=== PATIENT | male | born 1940 | race Caucasian/White ===

== ENCOUNTER → 2017-02-01 | Outpatient (CLI) | payer BC ==
[2017-02-01 14:15] LABS: ALT/SGPT 39 U/L (12-78); AST/SGOT 28 U/L (15-37); BLOOD UREA NITROGEN 17 mg/dl (7-18); BUN/CREATININE RATIO 12.8 (10-20); CALCIUM 9.5 mg/dl (8.5-10.1); CARBON DIOXIDE 30 mmol/L (21-32); CHLORIDE 101 mmol/L (98-107); CHOLESTEROL 197 mg/dl (0-200); GLUCOSE 120 mg/dl (70-99); POTASSIUM 4.2 mmol/L (3.5-5.1); SODIUM 140 mmol/L (136-145); TRIGLYCERIDES 113 mg/dl (0-150); VERY LOW DENSITY LIPOPROT CALC 23 mg/dl
[2017-02-01 14:25] LABS: CHOLESTEROL/HDL RATIO 1.8; HDL CHOLESTEROL 107 mg/dl; LDL CHOLESTEROL CALCULATED 67 mg/dl
== END | disposition home or self-care (01) ==
LOC: C.LABMFLN 12:09
PROVIDERS: ATTEND Family Medicine
DX: E03.9 Hypothyroidism, unspecified (principal); I25.10 Atherosclerotic heart disease of native coronary artery without angina pectoris; E78.00 Pure hypercholesterolemia, unspecified; I10 Essential (primary) hypertension

== ENCOUNTER → 2018-03-06 | Outpatient (CLI) | payer BC ==
[2018-03-06 13:27] LABS: ALBUMIN 3.7 gm/dl (3.4-5.0); ALKALINE PHOSPHATASE 65 U/L (45-117); AST/SGOT 35 U/L (15-37); BLOOD UREA NITROGEN 20 mg/dl (7-18); CALCIUM 8.5 mg/dl (8.5-10.1); CARBON DIOXIDE 28 mmol/L (21-32); CHOLESTEROL 187 mg/dl (0-200); CREATININE 1.38 mg/dl (0.60-1.40); GLUCOSE 117 mg/dl (70-99); SODIUM 138 mmol/L (136-145); TOTAL PROTEIN 6.9 gm/dl (6.4-8.2)
[2018-03-06 13:36] LABS: ALT/SGPT 35 U/L (12-78); LDL CHOLESTEROL CALCULATED 56 mg/dl
== END | disposition home or self-care (01) ==
LOC: C.LABMFLN 07:07
PROVIDERS: ATTEND Family Medicine
DX: E03.9 Hypothyroidism, unspecified (principal); E78.00 Pure hypercholesterolemia, unspecified; I10 Essential (primary) hypertension

== ENCOUNTER 2022-11-29 10:23 | Observation (INO) ==
--- NOTE | 2022-11-23 15:40 | Anesthesiology Consultation ---
Date of Service November 23, 2022 Assessment & Plan (1) Encounter for pre-operative examination: Chart Review Chart Review: Acceptable Risk for Surgery and Patient NOT seen in Pre Admission Testing - Check BSG AM DOS -COVID screening: Per PAT nursing assessment on 11/23/22. No known COVID-19 positive contacts or current COVID-19 related symptoms. Travel screen negative. Patient vaccinated for Covid. At surgeon discretion if preop Covid testing being done. Pt seen by PCP 11/16/22= seen for preop evaluation. "Based on available information you are at an acceptable degree of risk to proceed with surgical procedure by Dr. Wilburn on November 29 for bladder lesion and the enlarged prostate." Hold ASA one week prior to surgery. Comparing EKG from today to previous EKGs prior to TAVR procedure- only expected changes. No evidence of acute problem. BP well controlled. Last seen by cardio 11/13/22= S/p TAVR March 2022. Doing very well from cardiac standpoint. Valve is functioning properly. No cardiac symptoms. BP under good control. Dyslipidemia- on statin. Chronic bradycardia. Mild first degree AVB. LBBB. Remain on current cardiac meds. Follow up in six months. Will repeat ECHO at that time. History Surgery Operation Date: 11/29/22 12:05 Proposed Procedures p Transurethral Resection Prostate, - Andi Wilburn DO s Possible Resection of the Bladder Tumor - Andi Wilburn DO Height/Weight Height: 5 ft 6 in Weight: 74.843 kg Allergies Allergy/AdvReac Type Severity Reaction Status Date / Time No Known Drug Allergies Allergy Verified 11/23/22 13:25 Medications Home Medications Medication Instructions Recorded Confirmed Last Taken aspirin 81 mg tablet 81 mg PO QAM 03/26/19 11/23/22 1 Week Ago ~08/14/21 multivitamin 1 tab PO QAM 03/26/19 11/23/22 08/20/21 07:00 nitroglycerin 0.4 mg sublingual 0.4 mg sublingual Q5M PRN chest 09/02/19 11/23/22 Unknown tablet pain #25 tabs cetirizine 10 mg tablet 10 mg PO DAILY PRN Allergy Symptoms 11/15/20 11/23/22 Unknown amoxicillin 500 mg capsule 2,000 mg PO ONCE #4 caps 10/24/21 11/23/22 Unknown tamsulosin 0.4 mg capsule 0.4 mg PO HS #30 caps 02/19/22 11/23/22 Unknown memantine 10 mg tablet 10 mg PO BID #180 tabs 06/18/22 11/23/22 Unknown hydrochlorothiazide 25 mg tablet 25 mg PO QAM #90 tabs 07/25/22 11/23/22 Unknown allopurinol 100 mg tablet 100 mg PO QAM 11/23/22 11/23/22 Unknown atorvastatin 40 mg tablet 40 mg PO HS 11/23/22 11/23/22 Unknown donepezil 10 mg tablet 10 mg PO HS 11/23/22 11/23/22 Unknown levothyroxine 75 mcg tablet 75 - 150 mcg PO UD 11/23/22 11/23/22 Unknown losartan 100 mg tablet 100 mg PO QAM 11/23/22 11/23/22 Unknown Past Medical History Medical History (Updated 11/23/22 @ 15:55 by Emily Du PA-C) Anemia Hgb 12-13 since 01/2022 Asthma, mild intermittent Mild, stable Benign localized hyperplasia of prostate Bladder cancer Hx of TURBT Hx of BCG treatments per records CAD (coronary artery disease) Non-obstructive per 02/2022 cardiac cath Dementia Gout History of COVID-19 Beginning of 2021, PCP test, not hosp; "mild">resolved. History of transcatheter aortic valve replacement (TAVR) ~05/2022, [facility] [place]; f/u Dr Ko (due to severe aortic stenosis) Hypercholesterolemia Hypertension Hypothyroidism LBBB (left bundle branch block) follows with Dr. Ko Mild cognitive impairment Prediabetes Hgba1c 6.4% on 07/19/22 labs Past Family History Family History Brother Myocardial infarction Hypertension FH: kidney cancer Mother Diabetes Hypertension Father Heart disease Past Surgical History Surgical History (Updated 11/23/22 @ 15:35 by Emily Du PA-C) History of cardiac cath Non-obstructive, 50% LAD stenosis on 1999 cath (per cardiology records), [facility] [place] Non-obstructive CAD on 03/05/22 cardiac cath (prior to AVR) History of colonoscopy History of inguinal hernia repair History of tooth extraction Hx of cystoscopy Transurethral Resection Of Bladder Tumor Large Social History Smoking Status: Never smoker Do You Dip or Chew Tobacco: No Hx Alcohol Use: Yes Alcohol type: beer, wine and hard liquor alcohol intake frequency: other Alcohol Intake Frequency Comment: occasionally Hx Substance Use: No substance use type: does not use Lab Results Anesthesia Preop Results Results Anesthesia Widget: WBC 4.90 K/ul (4.8-10.8) 11/16/22 Hgb 13.6 g/dl (14.0-18.0) L 11/16/22 Hct 42.5 % (40.1-51.0) 11/16/22 Plt 153 K/uL (130-400) 11/16/22 Na 138 mmol/L (136-145) 11/16/22 K 3.4 mmol/L (3.5-5.1) L 11/16/22 Cl 100 mmol/L (98-107) 11/16/22 CO2 30 mmol/L (21-32) 11/16/22 BUN 23 mg/dl (6-23) 11/16/22 Creat 1.47 mg/dl (0.6-1.4) H 11/16/22 Glucose Level 241 mg/dl (70-99(Fasting)) H 11/16/22 Testing Laboratory Results Elevated creatinine - stable from previous 11/14/22= UA: non heme trace urine blood, trace urine leukocyte esterase Electrocardiogram Date: 11/16/22 SR at 60bpm Inferior myocardial infarction, probably old. Anteroseptal myocardiac infarction. Moderate T wave abnormality, consider lateral ischemia. No concerning or significant changes compared to 05/30/21 EKG per confirming provider Chest X-Ray Date: 01/29/22 Findings: + NAD Echocardiogram Date: 04/13/22 EF: 60-65% LV Function: normal RWMA: + none Other Findings: no LVH RV dilation with normal function Biatrial enlargement Aortic valve bioprosthesis (s/p TAVR 26mm Bryan Jonathan Ultra) with acceptable gradients and no regurgitation Cardiac Catheterization Date: 03/05/22 LM= no evidence of disease LAD= mildly disease Cx= not diseased RCA= mildly diseased Impression: Non obstructive CAD.
[~2022-11-29 10:23] MED LIST: LR 15ML/HR IV SCH; ceFAZolin 2000MG 2,000 MG/15 ML SYR IV SCH
[2022-11-29] MEDS ORDERED: ONDANSETRON INJ 2 MG/ML 2 ML VIAL ONE (12:15)
[2022-11-29] MEDS ORDERED: fentaNYL citrate 100 MCG/2 ML VIAL ONE (12:15)
[2022-11-29] MEDS ORDERED: ePHEDrine sulfate 50 MG/ML AMP IV PRN (12:15)
[2022-11-29] MEDS ORDERED: HYDROmorphone INJ 2 MG/ML SYR/VIAL IV PRN (12:15)
[2022-11-29] MEDS ORDERED: ATROPINE SULFATE 0.1 MG/ML 10ML SYR IV PRN (12:15)
[2022-11-29] MEDS ORDERED: PROPOFOL IV EMULSION 10 MG/ML 20 ML VIAL IV ONE (12:15)
[2022-11-29] MEDS ORDERED: fentaNYL citrate 100 MCG/2 ML VIAL IV PRN (12:15)
[2022-11-29] MEDS ORDERED: ONDANSETRON INJ 2 MG/ML 2 ML VIAL IV PRN (12:15)
[2022-11-29] MEDS ORDERED: LIDOCAINE 2% 2 ML VIAL/AMP(20MG/ML) INFIL ONE (12:15)
--- NOTE | 2022-11-29 12:34 | History & Physical Bridge Note ---
Date of Service November 29, 2022 History & Physical Bridge Note I have examined the patient, reviewed the History & Physical and in the interval since the performance of the History & Physical I have noted the following changes of clinical significance: no changes noted
[2022-11-29] MEDS ORDERED: HYDROCODONE/ACETAMOPHEN 5/325MG TAB PO PRN (12:40)
[2022-11-29] MEDS ORDERED: MoRPHine SULFATE 2 MG/ML CARP IV PRN (12:40)
[2022-11-29] MEDS ORDERED: BELLADONNA/OPIUM SUPP 60 MG SUPP PR PRN (12:40)
[2022-11-29] MEDS ORDERED: PHENAZOPYRIDINE HCL 200 MG TAB PO PRN (12:40)
[2022-11-29] MEDS ORDERED: GLYCOPYRROLATE 0.2 MG/ML VIAL ONE (13:14)
[2022-11-29] MEDS ORDERED: ePHEDrine sulfate 50 MG/ML AMP ONE (13:22)
--- NOTE | 2022-11-29 14:07 | Operative Report ---
PG Post Operative Report Pre & Post Diagnosis Operation Date: 11/29/22 12:05 Pre-Op Diagnosis: Bladder Cancer Post-Op Diagnosis: Bladder Cancer I identified the patient and participated in the time-out.: Yes Procedure Operation Date: 11/29/22 12:05 Actual Procedures p Transurethral Resection Prostate(Not Applicable) - Andi Wilburn DO Surgeon Andi Wilburn, II, DO Machine Filler Servicer None Estimated Blood Loss 10 Findings Consistent with Post-Op Diagnosis Large Prostate with obstruction. Mass at bladder neck at approx 10 o'clock to 7 o'clock, possibly projection of prostate vs bladder mass. Specimens 1. Bladder Mass - Bladder Neck 2. TURP Resection - Prostate adenoma. Drains 24Fr [address] Catheter Anesthesia Type General Complications none Disposition Disposition: Recovery Room Indications Patient with obstruction due to prostate enlargement. Risks and benefits discussed at length. Description of Procedure Patient was consented and brought back to the operating room. Patient was placed under anesthesia in the supine position and moved to the dorsal lithotomy position. Patient was prepped and draped in the regular sterile fashion. A time out was completed. A 30degree Cystoscope was placed into the bladder and the entire bladder was examined. The right lateral lobe was found to be very large. At the bladder neck along the right lateral edge a bulging mass was appreciated. Was covered in edematous and papillary appearing lesions and irritation. The tissue was irregular appearing. It was difficult to determine if it was a mass of the bladder vs a mass of the prostate projecting into the bladder. The right lateral lobe was severely enlarged which made identification and visualization more difficult. The UO's were identified as well as the bladder neck, trigone, dome, and the other important landmarks. The prostatic urethra and large lobes/adenoma was assessed and the veru and bladder neck identified and area/size was assessed. The resection scope was placed and the fine bipolar loop was selected. Starting at the 7 o'clock position at the bladder neck, the mass of the bladder neck was resected along the bladder wall up to the anterior bladder at approx 10 o'clock. Total area was approx 4.8 cm in size. The base was fulgurated. No other significant irregular mass tissue or abnormality was appreciated. The large right lateral lobe was found to be significantly obstructing and required resection. It was also found to have very large varicosities that were bleeding and irriated. Starting at 11 o'clock within the prostate a channel was created from bladder neck to the region of the veru. The large right lateral lobe was then resected down to the capsule fibers. This drastically opened the channel. Some of the prostatic tissue did look irregular. Possibly from chronic irritation. The Specimen was removed and sent for analysis. The resection bed and any bleeding areas were fulgurated/cauterized and the entire area inspected. All bleeding was controlled. The bladder was inspected a final time. The bladder was emptied and irrigated. All specimen and debris was removed. The scope was removed with the bladder partially full. A catheter was placed and balloon elevated. This was easily irrigated. CBI was attached and the bladder was found to be clear. The patient was cleaned, aroused from anesthesia, and transferred to the pacu in stable condition having tolerated the procedure well with no complications. I was present and participated in all aspects of the procedure. The patient will be monitored in the PACU until transferred. Plan to observe overnight. Will maintain catheter for next 10 days. Followup in office for removal. Will discuss path by phone call in 2-3 weeks. I attest to the content of the Intraoperative Record and any orders documented therein. Any exceptions are noted below.
--- NOTE | 2022-11-29 15:02 | Anesthesiology Progress Note ---
Date of Service November 29, 2022 Anesthesia Post Procedure Vital Signs Vital Signs: Temp Pulse Resp BP Pulse Ox O2 Del Method O2 Flow Rate 11/29/22 14:55 36.2 C L 58 L 16 117/62 94 Room Air 11/29/22 14:45 53 L 17 121/62 95 Room Air 11/29/22 14:35 56 L 17 129/64 98 Room Air 11/29/22 14:25 55 L 17 126/63 99 Oxymask 5 11/29/22 14:15 54 L 18 114/78 95 Oxymask 5 11/29/22 14:09 36.1 C L 61 18 125/72 97 Oxymask 5 11/29/22 11:07 36.6 C 51 L 21 171/79 H 99 Room Air Transfer of Care Handoff Completed per policy Notes Mental Status: alert / awake / arousable and participated in evaluation Patient Amnestic to Procedure: Yes Nausea / Vomiting: adequately controlled Pain: adequately controlled Airway Patency, RR, SpO2: stable & adequate BP & HR: stable & adequate Hydration State: stable & adequate Anesthetic Complications: no major complications apparent and Pt Satisfied with anesthetic care
[2022-11-29 16:36] LABS: Basophils # (auto) 0.01 K/uL (0-0.2); Basophils % (auto) 0.2 %; Eosinophils # (auto) 0.09 K/uL (0-0.50); Eosinophils % (auto) 2.2 %; Hematocrit (blood only) 38.4 % (42.0-52.0); Hemoglobin 12.4 g/dl (14.0-18.0); Immature Granulocytes # (auto) 0.02 K/uL (0.01-0.20); Immature Granulocytes % (auto) 0.5 %; Lymphocytes # (auto) 1.04 K/uL (1.2-3.4); Lymphocytes % (auto) 25.8 %; Mean Corpuscular Hemoglobin 30.4 pg (25.0-34.0); Mean Corpuscular Hgb Conc 32.3 g/dL (32.0-36.0); Mean Corpuscular Volume 94.1 fL (80.0-100.0); Mean Platelet Volume 10.4 fL (9.4-12.4); Monocytes # (auto) 0.28 K/uL (0.11-0.59); Monocytes % (auto) 6.9 %; Neutrophils # (auto) 2.59 K/uL (1.40-6.50); Neutrophils % (auto) 64.4 %; Platelet Count 110 K/uL (130-400); RDW Coefficient of Variation 14.2 % (11.5-14.5); RDW Standard Deviation 49.1 fL (36.4-46.3); Red Blood Count 4.08 M/uL (4.70-6.10); White Blood Count 4.03 K/ul (4.8-10.8)
[2022-11-29] MEDS: SODIUM CHLORIDE 0.9% 1000ML 1,000 ML IV SCH (17:00)
[2022-11-29 17:09] LABS: Albumin Level 3.3 gm/dl (3.4-5.0); Bilirubin,Total 0.7 mg/dl (0.2-1.0); Calcium 8.3 mg/dl (8.5-10.1); Potassium 3.6 mmol/L (3.5-5.1)
[2022-11-29 17:15] LABS: Albumin Globulin Ratio 1.7 (0.9-2); BUN Creatinine Ratio 16.1 (10-20); Creatinine Clr Calc Pharmacy 34.1 ml/min; Est GFR (African American) 49.6 ml/min; Est GFR (Non-African American) 42.8 ml/min; Total Protein 5.3 gm/dl (6.0-8.3)
[2022-11-29] MEDS ORDERED: TAMSULOSIN HCL 0.4 MG CAP PO SCH (21:00)
[2022-11-29] MEDS ORDERED: DONEPEZIL HCL 10 MG TAB PO SCH (21:00)
[2022-11-29] MEDS: MEMANTINE HCL 10 MG TAB PO SCH (21:06)
[2022-11-29] MEDS: ceFAZolin 2000MG 2,000 MG/15 ML SYR IV SCH (21:06)
--- NOTE | 2022-11-29 22:30 | Hospitalist Consultation ---
Date of Consultation November 29, 2022 Assessment & Plan (1) CAD (coronary artery disease): Parvez is a 82 year old male w/ PmHx CAD, CKD, HTN, Hx of valve replacement, bladder cancer and lesions admitted for TURP. CAD/Hx of TAVR: -History of TAVR 03/2022 w/o issue. -Patient on ASA 81mg, atorvastatin 40mg at home. -Hold ASA per surgeon, continue home atorvastatin 40mg daily. CKD Stage 3b/Hypertension: -EGFR 40-45 over past month. -creatinine around baseline of 1.41-1.45 -Continue home losartan 100mg, hydrochlorothiazide 25mg daily. -Continue to trend w/ AM BMP. Gout: -Can continue home allopurinol 100mg daily. HLD: -As above continue home atorvastatin 40mg daily. Hypothyroid: -Continue home synthroid 75mcg daily. Dispo: PCU. (2) Chronic kidney disease (CKD): (3) Hypertension: (4) Hypercholesterolemia: (5) Hypothyroidism: Supervising Physician Co-Signing Physician Notes attending addendum: I have supervised the medical residents activities, and agree with the H&P unless as otherwise noted. Assessment and Plan: Status post urologic surgery- Medically stable CAD/TAVR/hypertension- Aspirin on hold post procedure Continue losartan and HCTZ with hold parameters Follow serial BMP and magnesium levels CKD stage III- Baseline creatinine 1.41-1.45 Follow labs serially Hyperlipidemia- Continue atorvastatin Hypothyroidism- Synthroid Remaining orders and notations as noted History of Present Illness Reason for Consultation: CAD, CKD, Hx of valve replacement Requesting Physician: Dr. Wilburn Attending Physician: Andi Wilburn, II, DO History of Present Illness Parvez is a 82 year old male w/ PmHx CAD, CKD, HTN, Hx of valve replacement, bladder cancer and lesions admitted to the urological service for transurethral resection of prostate. Patient has a known history of aortic stenosis for which he had a TAVR procedure performed at [facility] in March of 2022 w/ 26mm Bryan CPN ultra via RTF; procedure without complication. He has a history of hypertension for which he's on hydrochlorothiazide for and lisinopril for however he has CKD Stage 3B. He has a history of hypothyroidism which he takes levothyroxine for, last TSH 0.494. He also has a history of hyperlipidemia for which he takes a atorvastatin 40mg with good control. A1c was 6.7 however he has had a past elevated glucose of 130, not on any medications at home. He also has a past history of elevated uric acid with L foot pain at 5th metatarsal with presumed gout, on allopurinol 100mg qAM. Patient underwent urological surgery today, postoperatively had no complaints. Denies nausea, vomiting, fevers, chills, chest pain, headaches. Allergies Allergy/AdvReac Type Severity Reaction Status Date / Time No Known Drug Allergies Allergy Unknown Verified 11/29/22 10:59 Home Medications Medication Instructions Recorded Confirmed Type aspirin 81 mg tablet 81 mg PO QAM 03/26/19 11/29/22 History multivitamin 1 tab PO QAM 03/26/19 11/29/22 History nitroglycerin 0.4 mg sublingual 0.4 mg sublingual Q5M PRN chest 09/02/19 11/29/22 History tablet pain #25 tabs cetirizine 10 mg tablet 10 mg PO DAILY PRN Allergy Symptoms 11/15/20 11/29/22 History tamsulosin 0.4 mg capsule 0.4 mg PO HS #30 caps 02/19/22 11/29/22 Rx memantine 10 mg tablet 10 mg PO BID #180 tabs 06/18/22 11/29/22 Rx hydrochlorothiazide 25 mg tablet 25 mg PO QAM #90 tabs 07/25/22 11/29/22 Rx allopurinol 100 mg tablet 100 mg PO QAM 11/23/22 11/29/22 History atorvastatin 40 mg tablet 40 mg PO HS 11/23/22 11/29/22 History donepezil 10 mg tablet 10 mg PO HS 11/23/22 11/29/22 History levothyroxine 75 mcg tablet 75 - 150 mcg PO UD 11/23/22 11/29/22 History losartan 100 mg tablet 100 mg PO QAM 11/23/22 11/29/22 History cephalexin 500 mg capsule 500 mg PO BID 7 days #14 caps 11/30/22 Rx docusate sodium 100 mg capsule 100 mg PO BID #60 caps 11/30/22 Rx (Colace) Patient History Medical History Anemia Hgb 12-13 since 01/2022 Asthma, mild intermittent Mild, stable Benign localized hyperplasia of prostate Bladder cancer Hx of TURBT Hx of BCG treatments per records CAD (coronary artery disease) Non-obstructive per 02/2022 cardiac cath Dementia Gout History of COVID-19 Beginning of 2021, PCP test, not hosp; "mild">resolved. History of transcatheter aortic valve replacement (TAVR) ~05/2022, [facility] [place]; f/u Dr Ko (due to severe aortic stenosis) Hypercholesterolemia Hypertension Hypothyroidism LBBB (left bundle branch block) follows with Dr. Ko Mild cognitive impairment Prediabetes Hgba1c 6.4% on 07/19/22 labs Surgical History History of cardiac cath Non-obstructive, 50% LAD stenosis on 1999 cath (per cardiology records), [facility] [place] Non-obstructive CAD on 03/05/22 cardiac cath (prior to AVR) History of colonoscopy History of inguinal hernia repair History of tooth extraction Hx of cystoscopy Transurethral Resection Of Bladder Tumor Large Family History Brother Myocardial infarction Hypertension FH: kidney cancer Mother Diabetes Hypertension Father Heart disease Social History Smoking Status: Never smoker Second Hand Exposure: No; Hx Alcohol Use: Yes Alcohol type: beer, wine and hard liquor Hx Substance Use: No Preferred Language: Comoran Communication Ability: Effective Visual Impairment: No Limitations Mold Insert Changer Required: No Beliefs That Will Affect Care: None marital status: Current Living Situation: Spouse Feels Safe at Home: Yes caffeine: Yes Seatbelt Use: always Assistive Devices: None Review of Systems Review of Systems: As per HPI. Physical Exam Constitutional: WD/WN, vitals as above Eyes: PERRL, conjunctivae normal, anicteric sclerae Respiratory: normal respiratory effort, lungs clear to auscultation Cardiovascular: RRR, no murmur, no edema Gastrointestinal (Abdomen): normal bowel sounds, soft, nontender, no hepatosplenomegaly Psychiatric: A+Ox3, euthymic affect Results & Data Results & Data ([facility]) Vital Signs (Past 12 Hours) Vital Signs Temp Pulse Pulse Resp BP Pulse Ox O2 Del Method 11/29/22 19:32 36.6 C 67 18 130/87 94 Room Air 11/29/22 17:59 49 L 11/29/22 16:00 36.6 C 52 L 16 143/79 H 97 Room Air 11/29/22 16:12 Nasal Cannula 11/29/22 15:43 36.4 C L 11/29/22 15:20 54 L 15 131/67 100 Nasal Cannula 11/29/22 15:05 58 L 15 124/61 100 Nasal Cannula 11/29/22 14:55 36.2 C L 58 L 16 117/62 94 Room Air 11/29/22 14:45 53 L 17 121/62 95 Room Air 11/29/22 14:35 56 L 17 129/64 98 Room Air 11/29/22 14:25 55 L 17 126/63 99 Oxymask 11/29/22 14:15 54 L 18 114/78 95 Oxymask 11/29/22 14:09 36.1 C L 61 18 125/72 97 Oxymask 11/29/22 11:07 36.6 C 51 L 21 171/79 H 99 Room Air O2 Flow Rate 11/29/22 19:32 11/29/22 17:59 11/29/22 16:00 11/29/22 16:12 2 11/29/22 15:43 11/29/22 15:20 2 11/29/22 15:05 2 11/29/22 14:55 11/29/22 14:45 11/29/22 14:35 11/29/22 14:25 5 11/29/22 14:15 5 11/29/22 14:09 5 11/29/22 11:07 Resident Activity Tracking Resident Involvement: Resident Care Provided Care Provided: Adult Hospital Medicine
[2022-11-30] MEDS: SODIUM CHLORIDE 0.9% 1000ML 1,000 ML IV SCH (01:34)
[2022-11-30] MEDS: ceFAZolin 2000MG 2,000 MG/15 ML SYR IV SCH (04:44)
[2022-11-30] MEDS ORDERED: LEVOTHYROXINE SODIUM 75 MCG TABLET PO SCH (06:30)
--- NOTE | 2022-11-30 07:29 | Hospitalist Progress Note ---
Date of Service November 30, 2022 Assessment & Plan (1) CAD (coronary artery disease): Plan: Parvez is a 82 year old male w/ PmHx CAD, CKD, HTN, Hx of valve replacement, bladder cancer and lesions admitted for TURP. S/p TURP 11/29 - Management per Urology team - Gray intact, irrigation discontinued AM 11/30 --- Hgb 12.4 --- Plan to discharge with short term Gray and follow up w/ Urology CAD/Hx of TAVR: -History of TAVR 03/2022 w/o issue. -Patient on ASA 81mg, atorvastatin 40mg at home. -Hold ASA per surgeon, continue home atorvastatin 40mg daily. --- ASA recommendations per surgery, continue home statin. CKD Stage 3b/Hypertension: -EGFR 40-45 over past month. -Creatinine around baseline of 1.41-1.45 -Continue home losartan 100mg, hydrochlorothiazide 25mg daily. -Continue to trend w/ AM BMP. --- Cr and GFR stable, continue home medications Gout: - Can continue home allopurinol 100mg daily. --- Continue home regimen HLD: - As above continue home atorvastatin 40mg daily Hypothyroid: - Continue home Synthroid 75mcg daily. --- Continue home regimen Dispo: Home Code: Full (2) Chronic kidney disease (CKD): (3) Hypertension: (4) Hypercholesterolemia: (5) Hypothyroidism: Admission and Anticipated Discharge Date Admission Date: November 29, 2022 Supervising Physician Co-Signing Physician Notes Chart reviewed, case discussed with resident physician. Patient was discharged by primary service prior to my being able to see him, but definitely appears safe for discharge under current condition. Otherwise as above. Subjective 2/3: Patient sitting at bedside upon arrival, he denies pain or discomfort. He notes that he is overall well and looking forward to going home. He denies any chest pain, dyspnea, pleuritic pain, bowel changes, lightheadedness, or weakness. Patient tolerated regular breakfast w/o difficulty. Review of Systems Review of Systems: As per HPI. Physical Exam Physical Exam: Gen: NAD, alert, interactive Resp:Non-labored, no wheezing/rhonchi/rales, CTAB CV:RRR, normal S1/S2, no M/R/G Abd: Soft, non-distended, no TTP, normoactive bowels, no masses Extr: 2+ dp bilaterally, no edema Skin: No rashes lesions or erythema Urinary catheter intact, irrigation clamped this AM Results & Data Results & Data ([facility]) Vital Signs (Past 12 Hours) Vital Signs Temp Pulse Resp BP Pulse Ox O2 Del Method O2 Flow Rate 11/30/22 02:31 36.6 C 54 L 18 121/81 97 Nasal Cannula 2 11/29/22 22:55 36.7 C 60 18 136/68 90 Room Air 11/29/22 19:32 36.6 C 67 18 130/87 94 Room Air Resident Activity Tracking Resident Involvement: Resident Care Provided Care Provided: Adult Hospital Medicine
[2022-11-30] MEDS: MEMANTINE HCL 10 MG TAB PO SCH (07:42)
--- NOTE | 2022-11-30 08:53 | Urology Progress Note ---
Date of Service November 30, 2022 Assessment & Plan (1) Benign localized hyperplasia of prostate: Plan: - Pt POD#1 s/p TURP with Dr. Wilburn. - Doing well, progressing as expected. - No issues with pain overnight. - Tolerating PO diet. - 3 way Gray catheter intact, patent and draining clear yellow urine with CBI on slow. - CBI clamped @0815 - will reassess later this AM. - Maintain Gray catheter. - Anticipate home with Gray catheter later today presuming urine appropriate and he continues to progress as expected. - Discussed with hospital medicine service, pt ready for discharge from their standpoint. - Expected clinical course reviewed, all questions answered. - Will arrange outpatient follow-up with our service for voiding trial in approximately 10 days. Patient reassessed at 1100 - Gray patent and draining clear yellow to light pink tinged urine with CBI clamped. Discontinue CBI set-up, plug irrigation port. Patient is ready for discharge to home with Gray catheter - orders placed. Admission and Anticipated Discharge Date Admission Date: November 29, 2022 Subjective Patient seen and examined at bedside this morning. He is awake, alert and sitting up in bed eating breakfast. No acute issues overnight. He denies pain. Gray intact draining clear yellow urine with CBI on slow. CBI clamped at 0815. Tolerating diet. No nausea or vomiting. No fever or chills. Review of Systems Constitutional: as per Subjective / HPI Gastrointestinal: as per Subjective / HPI Genitourinary: + as per Subjective / HPI Physical Exam Constitutional: well developed and well nourished; no acute distress and not ill appearing Respiratory: normal respiratory effort and able to speak in complete sentences; no respiratory distress and no labored breathing Cardiovascular: Extremities: no pedal edema Gastrointestinal (Abdomen): Inspection/Auscultation: abdomen normal to inspection; abdomen not distended Neurologic: moves all extremities and awake Psychiatric: Orientation: alert and oriented x 3 Results & Data ([facility]) Vital Signs (Past 12 Hours) Vital Signs Temp Pulse Resp BP Pulse Ox O2 Del Method O2 Flow Rate 11/30/22 07:31 36.9 C 64 16 116/58 L 93 Room Air 11/30/22 02:31 36.6 C 54 L 18 121/81 97 Nasal Cannula 2 11/29/22 22:55 36.7 C 60 18 136/68 90 Room Air PG Care Time/CCT Total # of Minutes Spent Total Time Spent with Patient: Total time spent is greater than 50% in coordination of care (as documented) at patient's floor/unit and/or counseling patient: Coding Level of Care Code 60709 SUB INP/OBS CARE 1/25MIN Diagnoses Benign localized hyperplasia of prostate N40.0
[2022-11-30] MEDS ORDERED: LOSARTAN POTASSIUM 50 MG TAB PO SCH (09:00)
[2022-11-30] MEDS ORDERED: allopurinoL 100 MG TAB PO SCH (09:00)
[2022-11-30] MEDS ORDERED: hydroCHLOROthiazide 25 MG TAB PO SCH (09:00)
--- NOTE | 2022-11-30 12:24 | Discharge Summary ---
Date of Service November 30, 2022 Admission HPI Per Admitting Provider Patient with obstruction due to prostate enlargement here for transurethral resection of prostate. Risks and benefits discussed at length. Admission Exam Per Admitting Provider General: Alert in no acute distress. HEENT: Normocephalic Atraumatic. Inspection normal. Psychologic: Normal affect. Respiratory: Nonlabored. Cardiovascular: No tachycardia Skin: [place] and Dry. Principal Diagnosis BPH with obstruction Discharge Exam Constitutional well developed and well nourished; no acute distress and not ill appearing Respiratory normal respiratory effort and able to speak in complete sentences; no respiratory distress and no labored breathing Cardiovascular Extremities: no pedal edema Gastrointestinal (Abdomen) Inspection/Auscultation: abdomen normal to inspection; abdomen not distended Neurologic moves all extremities and awake Psychiatric Orientation: alert and oriented x 3 Discharge Data Allergies Allergy/AdvReac Type Severity Reaction Status Date / Time No Known Drug Allergies Allergy Unknown Verified 11/29/22 10:59 Consultations 11/29/22 12:40 Consult Hospitalist Routine Procedures Performed Operation Date: 11/29/22 12:05 Actual Procedures p Transurethral Resection Prostate(Not Applicable) - Andi Wilburn, DO Hospital Course (1) Benign localized hyperplasia of prostate: - Pt POD#1 s/p TURP with Dr. Wilburn. - Doing well, progressing as expected. - No issues with pain overnight. - Tolerating PO diet. - 3 way Gray catheter intact, patent and draining clear yellow urine with CBI on slow. - CBI clamped @0815 - will reassess later this AM. - Maintain Gray catheter. - Anticipate home with Gray catheter later today presuming urine appropriate and he continues to progress as expected. - Discussed with hospital medicine service, pt ready for discharge from their standpoint. - Expected clinical course reviewed, all questions answered. - Will arrange outpatient follow-up with our service for voiding trial in approximately 10 days. Patient reassessed at 1100 - Gray patent and draining clear yellow to light pink tinged urine with CBI clamped. Discontinue CBI set-up, plug irrigation port. Patient is ready for discharge to home with Gray catheter - orders placed. Total Time Total Time Spent Total Time Spent (In Minutes): 29 Discharge Plan Discharge Items Patient Disposition: Home - Self-Care Reason For Visit: BPH WITH OBSTRUCTION Discharge Diagnosis: BPH with obstruction Activity: Per Instructions section Lifting: No more than 25 pounds Bathing Comment: Okay to shower after discharge Sexual Activity: Wait until after follow-up appointment Exercise/Sports: Wait until after follow-up appointment Driving/Machine Use: No driving if taking prescription pain medication Non-emergency contact: Surgeon and Urologist Call non-emergency contact if: your symptoms worsen, your pain is not controlled and your temperature is above 101 Follow-up/Referrals: Sid Resendiz MD [Primary Care Provider] - 12/03/22 2:30 pm Andi Wilburn DO [Physician] - 12/14/22 9:00 am (virtual (phone call) visit) [facility],Nurse [FAKE FOR SCHEDULES] - 12/10/22 10:55 am Diet: Regular Addtl Attending Provider Instructions: Please take all medications as prescribed and keep all follow-ups as scheduled. Please call our office at [phone] with any questions, concerns or need to reschedule appointments for any reason. We are happy to assist you. Start antibiotic tonight and continue to take as directed until completed. You can resume your Aspirin in 1-2 days if you urine is clear to pink. Tips for your recovery at home: Dont be alarmed by brownish or reddish blood or clots in your urine. This is a result of the procedure. This may occur off and on for weeks to months after the procedure but should continue to improve. Drink plenty of fluids during the day (enough to keep your urine very light colored). This will help keep a healthy flow of urine. Do not lift >25 lbs until your followup Avoid constipation. Please use a stool softener (Colace) for the first two weeks after your procedure Be sure to finish the antibiotics as prescribed. If you go home with a catheter, please wash tubing where it enters your body twice daily with mild soap (Dove or Dial). Once your catheter is removed, expect some blood in your urine and some burning when you urinate. You should have an appointment to have this removed, if you do not please call our office to arrange. Call [facility] at [phone] right away if you have any of the following: Chest pain or trouble breathing (call 911 or go to the hospital) Fever of 101F or higher, uncontrolled vomiting Heavy bleeding, clots, or bright red blood from the catheter Catheter that falls out or stops draining Foul-smelling discharge from your catheter Pending Studies at Discharge: Yes (Pathology) Stand-Alone Forms: My [facility], Smoking Cessation Medications and DC Order Prescriptions: New cephalexin 500 mg capsule 500 mg PO BID 7 Days Qty: 14 0RF docusate sodium [Colace] 100 mg capsule 100 mg PO BID Qty: 60 0RF Rx Instructions: Take twice daily for 2 weeks, then as needed for constipation. Continued tamsulosin 0.4 mg capsule 0.4 mg PO HS Qty: 30 11RF memantine 10 mg tablet 10 mg PO BID Qty: 180 3RF aspirin 81 mg tablet 81 mg PO QAM multivitamin tablet 1 tab PO QAM nitroglycerin 0.4 mg tablet, sublingual 0.4 mg SL Q5M PRN (Reason: chest pain) Qty: 25 cetirizine 10 mg tablet 10 mg PO DAILY PRN (Reason: Allergy Symptoms) hydrochlorothiazide 25 mg tablet 25 mg PO QAM Qty: 90 3RF atorvastatin 40 mg tablet 40 mg PO HS donepezil 10 mg tablet 10 mg PO HS allopurinol 100 mg tablet 100 mg PO QAM Rx Instructions: to prevent recurrence of gout levothyroxine 75 mcg tablet 75 - 150 mcg PO UD Rx Instructions: 1 tablet SAT-SAT; 2 tablets on Saturday am losartan 100 mg tablet 100 mg PO QAM Discharge Orders: Discharge Order (Routine); Ordered 11/30/22 Ordered By: Terese Butcher/Other Patient Handouts: Urinary Catheter Bag Empty Clean, Indwelling Urinary Catheter Dc, Leg Bag Care Dc, Gray Catheter Male Admission Data Admit Date/Time: 11/29/22 12:40 Attending Provider: Andi Wilburn Admit Provider: Andi Wilburn Primary Care Provider: Sid Resendiz Other Providers: Eric Alcocer ; Marlene Holcomb ; Costa Barrera ; Parvez Mead[place] ; Jagdish Lloyd ; Last Z[place]ala ; Sid King ; An Altman ; Karyna Baum ; Felix Lara ; Wojciech Richardson ; Francisca Green ; Alexandro Butt ; Reji Hernandez ; Tiffany Snowden ; Ella Mart ; Crys Santana ; Willy Looney ; Abdulkadir Cancino ; Marcelle Patel ; Marlene [place] ; Faith Loomis ; Venkatesh Prince ; [place] ; Julienne Spann ; Tanner Pickering ; Price Romero ; Sarahi Desouza ; Quan Arias ; Ena Dhaliwal ; Kings Cummings ; Alejandra Puente ; Favian Cole ; Ruthie Carty ; Berna Thompson ; Matthew Dyer ; Lynn Montez Other Interventions: Discharge Summary Assessment (RN) Last Done: 11/30/22 11:10 Coding Level of Care Code HOSP INP/OBS DISCH 30 MIN/LESS Diagnoses Benign localized hyperplasia of prostate N40.0
--- NOTE | 2022-11-30 20:54 | Billing Data ---
Date of Service November 30, 2022 Coding Level of Care Code INP/OBS CONSULT LVL 3, 45 MIN
[2022-11-30] MEDS ORDERED: ATORVASTATIN 40 MG TAB PO SCH (21:00)
[2022-12-02] MEDS ORDERED: LEVOTHYROXINE SODIUM 150 MCG TABLET PO SCH (06:30)
== END 2022-11-30 13:12 | disposition home or self-care (01) ==
LOC: ASU 10:23 → 2E 10:23